=== PATIENT | female | born 1950 | race Caucasian/White ===

== ENCOUNTER 2016-09-08 23:28 | Emergency (ER) | payer MEDICARE, MEDICAID ==
[~2016-09-08] VITALS: Ht 167.6 cm; Wt 63.5 kg
[~2016-09-08 23:28] MED LIST: EXEM25TA4 PO; HYDR25TA4 PO; IPRIH IN; RAMI10CA38 PO; SERT-160 PO; TRAM50TA2 PO
[2016-09-09 05:34] VITALS: BP 130/66
[2016-09-09] MEDS ORDERED: TETANUS-DIPTH-ACEL PERTUSSIS 0.5ML SYRG IM ONE (06:45)
[2016-09-09] MEDS ORDERED: BACITRACIN TOP OINT 1 UD PKG TOP ONE (07:15)
== END 2016-09-09 07:21 | disposition home or self-care (01) ==
LOC: EDBD 23:28 → ER 23:28
DX: S01.81XA Laceration without foreign body of other part of head, initial encounter (principal); S51.801A Unspecified open wound of right forearm, initial encounter; F17.210 Nicotine dependence, cigarettes, uncomplicated; J44.9 Chronic obstructive pulmonary disease, unspecified; I10 Essential (primary) hypertension; Z90.89 Acquired absence of other organs; W01.0XXA Fall on same level from slipping, tripping and stumbling without subsequent striking against object, initial encounter; Y93.89 Activity, other specified; Y99.8 Other external cause status; Y92.89 Other specified places as the place of occurrence of the external cause
CPT/HCPCS: 12013; 70450; 90471; 90715

== ENCOUNTER 2016-09-28 20:02 | Inpatient (IN) | payer OTHER, MEDICAID ==
[~2016-09-28] VITALS: Ht 167.6 cm; Wt 70.9 kg
[2016-09-28] MEDS ORDERED: methylPREDNISolone SOD SUCC 125 MG/2 ML VL IV ONE (20:45)
[2016-09-28] MEDS ORDERED: ALBUTEROL SULF 2.5 MG/0.5ML(0.5%) NEB SOLN HHN ONE (20:45)
[2016-09-28] MEDS ORDERED: IPRATROPIUM BROM 0.5 MG/2.5ML INH SOL HHN ONE (20:45)
[2016-09-28 21:04] LABS: Basophils # (auto) 0 uL; Basophils % (auto) 0.4 % (0.0-2.0); CONDITION Y; Eosinophils # (auto) 0.1 uL; Eosinophils % (auto) 1.6 % (0.0-7.0); Hematocrit 40.8 % (36.0-46.0); Hemoglobin 13.1 g/dL (12.2-16.2); Lymphocytes # (auto) 1.1 uL; Lymphocytes % (auto) 18.1 % (10.0-50.0); Mean Corpuscular Hgb Conc. 32.2 g/dL (32.0-36.0); Mean Corpuscular Volume 96.3 fL (80.0-100.0); Mean Platelet Volume 6.3 fL (7.4-10.4); Monocytes # (auto) 0.5 uL; Monocytes % (auto) 8.1 % (0.0-12.0); Neutrophils # (auto) 4.2 uL; Neutrophils % (auto) 71.8 % (37.0-80.0); Platelet Count (auto) 234 10^3/uL (140-450); Red Cell Distribution Width 15.9 % (11.6-16.0); White Blood Cell 5.9 10^3/uL (4.4-10.8)
[2016-09-28 21:24] LABS: Albumin 3.4 g/dL (3.4-5.0); Anion Gap 6 (5-15); BUN/Creatinine Ratio 22.2; Blood Urea Nitrogen 16 mg/dL (7-18); Carbon Dioxide 38 mmol/L (21-32); Chloride 99 mmol/L (98-107); GFR African American 104 mL/min; GFR Non-African American 86 mL/min; Glucose 91 mg/dL (74-106); Potassium 4.6 mmol/L (3.5-5.1); Sodium 143 mmol/L (136-145)
[2016-09-28 21:30] LABS: Alkaline Phosphatase 73 U/L (45-117); Aspartate Aminotransferase 14 U/L (15-37); Bilirubin, Total 0.3 mg/dL (0.2-1.0)
[2016-09-28 21:50] LABS: B-Type Natriuretic Peptide 51.6 pg/mL (0-100)
[2016-09-28] MEDS ORDERED: cloNIDine HCL 0.1 MG TAB PO PRN (22:15)
[2016-09-28] MEDS ORDERED: ONDANSETRON HCL 4 MG/2 ML VIAL IV PRN (22:15)
[2016-09-28] MEDS ORDERED: FUROSEMIDE 20 MG/2 ML VIAL IV ONE (22:15)
[2016-09-28] MEDS ORDERED: ACETAMINOPHEN 325 MG TAB PO PRN (22:15)
[2016-09-28] MEDS: HYDROcodone-ACET 5/325MG TAB PO PRN (22:35)
[2016-09-28 23:15] VITALS: BP 162/86
[2016-09-28 23:30] VITALS: BP 153/72
[2016-09-29 05:00] VITALS: BP 152/86
[2016-09-29 06:54] LABS: Basophils # (auto) 0 uL; Basophils % (auto) 0.1 % (0.0-2.0); Eosinophils # (auto) 0 uL; Lymphocytes # (auto) 0.3 uL; Lymphocytes % (auto) 5.5 % (10.0-50.0); Mean Corpuscular Hemoglobin 30.9 pg (28.0-32.0); Mean Corpuscular Hgb Conc. 32.4 g/dL (32.0-36.0); Mean Corpuscular Volume 95.2 fL (80.0-100.0); Mean Platelet Volume 6.8 fL (7.4-10.4); Monocytes # (auto) 0 uL; Monocytes % (auto) 0.6 % (0.0-12.0); Neutrophils # (auto) 5.4 uL; Neutrophils % (auto) 93.8 % (37.0-80.0); Platelet Count (auto) 199 10^3/uL (140-450); Red Cell Distribution Width 14.2 % (11.6-16.0); White Blood Cell 5.7 10^3/uL (4.4-10.8)
[2016-09-29] MEDS: ALBUTEROL SULF 2.5 MG/0.5ML(0.5%) NEB SOLN NEB PRN ×3 (07:16→22:38)
[2016-09-29] MEDS: IPRATROPIUM BROM 0.5 MG/2.5ML INH SOL NEB PRN ×3 (07:17→22:39)
[2016-09-29 07:23] LABS: Albumin 3.4 g/dL (3.4-5.0); BUN/Creatinine Ratio 19.4; Bilirubin, Total 0.4 mg/dL (0.2-1.0); Calcium 9.5 mg/dL (8.5-10.1); Potassium 4.5 mmol/L (3.5-5.1); Total Protein 7.5 g/dL (6.4-8.2)
[2016-09-29 09:17] VITALS: BP 137/81
[2016-09-29] MEDS: SERTRALINE HCL 50 MG TAB PO SCH (10:00)
[2016-09-29] MEDS: RAMIPRIL 10 MG CAP PO SCH (10:53)
[2016-09-29] MEDS: HCTZ 25 MG TAB PO SCH (10:54)
[2016-09-29] MEDS: ENOXAPARIN SOD 40 MG/0.4 ML SYRINGE SC SCH (10:54)
[2016-09-29] MEDS: FAMOTIDINE 20 MG TAB PO SCH ×2 (10:55→21:58)
[2016-09-29 13:07] VITALS: BP 140/85
[2016-09-29] MEDS ORDERED: FLUT500M2 INH (13:37)
[2016-09-29] MEDS ORDERED: LEVOFLOXACIN 500MG 100 ML IV ONE (14:30)
[2016-09-29] MEDS ORDERED: guaiFENesin-DEXTROMETHORPHAN 5ML SYR PO PRN (14:30)
[2016-09-29 17:07] VITALS: BP 140/67
[2016-09-29 21:29] VITALS: BP 120/81
[2016-09-29] MEDS: methylPREDNISolone SOD SUCC 40 MG/ML VL IV SCH (21:58)
[2016-09-30 05:38] VITALS: BP 125/79
[2016-09-30 06:32] LABS: Basophils # (auto) 0 uL; Basophils % (auto) 0.3 % (0.0-2.0); CONDITION Y; Eosinophils # (auto) 0 uL; Hematocrit 41.5 % (36.0-46.0); Hemoglobin 13.6 g/dL (12.2-16.2); Lymphocytes # (auto) 0.4 uL; Lymphocytes % (auto) 8.7 % (10.0-50.0); Mean Corpuscular Hemoglobin 31.2 pg (28.0-32.0); Mean Corpuscular Hgb Conc. 32.7 g/dL (32.0-36.0); Mean Corpuscular Volume 95.4 fL (80.0-100.0); Mean Platelet Volume 7.2 fL (7.4-10.4); Monocytes # (auto) 0.3 uL; Monocytes % (auto) 5.1 % (0.0-12.0); Neutrophils # (auto) 4.4 uL; Neutrophils % (auto) 85.9 % (37.0-80.0); Platelet Count (auto) 211 10^3/uL (140-450); Red Cell Distribution Width 15.4 % (11.6-16.0); White Blood Cell 5.2 10^3/uL (4.4-10.8)
[2016-09-30 06:40] LABS: Calcium 9.1 mg/dL (8.5-10.1); Potassium 5.3 mmol/L (3.5-5.1)
[2016-09-30 06:44] LABS: BUN/Creatinine Ratio 18.1
[2016-09-30 09:00] VITALS: BP 145/68
[2016-09-30] MEDS: ENOXAPARIN SOD 40 MG/0.4 ML SYRINGE SC SCH (10:00)
[2016-09-30] MEDS: RAMIPRIL 10 MG CAP PO SCH (10:42)
[2016-09-30] MEDS: methylPREDNISolone SOD SUCC 40 MG/ML VL IV SCH ×2 (10:42→21:28)
[2016-09-30] MEDS: HCTZ 25 MG TAB PO SCH (10:43)
[2016-09-30] MEDS: FAMOTIDINE 20 MG TAB PO SCH ×2 (10:43→21:28)
[2016-09-30] MEDS: LEVOFLOXACIN 500MG 100 ML IV SCH (10:43)
[2016-09-30] MEDS: SERTRALINE HCL 50 MG TAB PO SCH (10:44)
[2016-09-30] MEDS: HYDROcodone-ACET 5/325MG TAB PO PRN (10:58)
[2016-09-30] MEDS: IPRATROPIUM BROM 0.5 MG/2.5ML INH SOL NEB PRN (12:40)
[2016-09-30] MEDS: ALBUTEROL SULF 2.5 MG/0.5ML(0.5%) NEB SOLN NEB PRN (12:40)
[2016-09-30 13:01] VITALS: BP 109/64
[2016-09-30] MEDS ORDERED: SODIUM CHLORIDE 0.9% 1,000 ML IV SCH (15:15)
[2016-09-30] MEDS: SODIUM CHLORIDE 0.9% 1,000 ML IV SCH (16:11)
[2016-09-30 17:00] VITALS: BP 149/68
[2016-09-30] MEDS ORDERED: ALPR0.5T PO (20:29)
[2016-09-30 21:18] VITALS: BP 113/65
[2016-09-30] MEDS: TEMAZEPAM 15 MG CAP PO PRN (21:28)
[2016-10-01 05:31] VITALS: BP 105/51
[2016-10-01 06:42] LABS: BUN/Creatinine Ratio 26.1; Calcium 9.2 mg/dL (8.5-10.1); Potassium 5.5 mmol/L (3.5-5.1)
[2016-10-01] MEDS ORDERED: SODIUM CHLORIDE 0.9% 1,000 ML IV ONE (07:15)
[2016-10-01] MEDS ORDERED: SODIUM BICARBONATE 8.4 % INJ 50ML VIAL IV ONE (07:15)
[2016-10-01] MEDS: IPRATROPIUM BROM 0.5 MG/2.5ML INH SOL NEB PRN (07:54)
[2016-10-01] MEDS: ALBUTEROL SULF 2.5 MG/0.5ML(0.5%) NEB SOLN NEB PRN (07:54)
[2016-10-01] MEDS: SODIUM CHLORIDE 0.9% 1,000 ML IV SCH (07:55)
[2016-10-01] MEDS: SERTRALINE HCL 50 MG TAB PO SCH (08:59)
[2016-10-01] MEDS: FAMOTIDINE 20 MG TAB PO SCH ×2 (08:59→21:50)
[2016-10-01] MEDS: ENOXAPARIN SOD 40 MG/0.4 ML SYRINGE SC SCH (08:59)
[2016-10-01] MEDS: methylPREDNISolone SOD SUCC 40 MG/ML VL IV SCH ×2 (08:59→21:50)
[2016-10-01 09:00] VITALS: BP 90/48
[2016-10-01] MEDS: LEVOFLOXACIN 500MG 100 ML IV SCH (09:04)
[2016-10-01] MEDS ORDERED: SODIUM POLYSTYRENE SULF 15GM/60ML SUSP PO ONE (09:15)
[2016-10-01] MEDS: ALPRAZolam 0.5 MG TAB PO PRN (10:16)
[2016-10-01 10:37] LABS: Urine Bilirubin Negative (Negative); Urine Color Yellow (Yellow); Urine Glucose Normal (Normal); Urine Ketone Negative (Negative); Urine Nitrite Negative (Negative); Urine RBC 19 /hpf (0 - 4); Urine Squamous Epithelial Cell FEW /hpf (<5); Urine Urobilinogen Normal (Negative); Urine pH 6.5 (5.0-8.0)
[2016-10-01 10:38] LABS: Urine Blood 2+ /uL (Negative)
[2016-10-01 13:00] VITALS: BP 132/66
[2016-10-01 17:00] VITALS: BP 135/73
[2016-10-01] MEDS: MULTIPLE VITAMINS W/ MINERALS TAB PO SCH (17:26)
[2016-10-01] MEDS ORDERED: SERTRALINE HCL 50 MG TAB PO ONE (17:30)
[2016-10-01] MEDS: TEMAZEPAM 15 MG CAP PO PRN (21:49)
[2016-10-01] MEDS: ASCORBIC ACID 500 MG TAB PO SCH (21:49)
[2016-10-01 22:00] VITALS: BP 149/75
[2016-10-02] VITALS (8 sets, daily range): BP systolic 102–152; BP diastolic 50–74
[2016-10-02] MEDS: SODIUM CHLORIDE 0.9% 1,000 ML IV SCH (05:34)
[2016-10-02 05:53] LABS: Basophils # (auto) 0 uL; Basophils % (auto) 0.3 % (0.0-2.0); CONDITION Y; Eosinophils # (auto) 0 uL; Eosinophils % (auto) 0.1 % (0.0-7.0); Hematocrit 42.4 % (36.0-46.0); Hemoglobin 13.9 g/dL (12.2-16.2); Lymphocytes # (auto) 0.8 uL; Lymphocytes % (auto) 17.9 % (10.0-50.0); Mean Corpuscular Hemoglobin 31.3 pg (28.0-32.0); Mean Corpuscular Hgb Conc. 32.8 g/dL (32.0-36.0); Mean Corpuscular Volume 95.4 fL (80.0-100.0); Mean Platelet Volume 6.8 fL (7.4-10.4); Monocytes # (auto) 0.3 uL; Monocytes % (auto) 7.7 % (0.0-12.0); Neutrophils # (auto) 3.4 uL; Platelet Count (auto) 233 10^3/uL (140-450); Red Cell Distribution Width 15.6 % (11.6-16.0); White Blood Cell 4.5 10^3/uL (4.4-10.8)
[2016-10-02 06:14] LABS: BUN/Creatinine Ratio 30.1; Calcium 8.8 mg/dL (8.5-10.1); Potassium 3.9 mmol/L (3.5-5.1)
[2016-10-02] MEDS: ALBUTEROL SULF 2.5 MG/0.5ML(0.5%) NEB SOLN NEB PRN (06:55)
[2016-10-02] MEDS: IPRATROPIUM BROM 0.5 MG/2.5ML INH SOL NEB PRN (06:55)
[2016-10-02] MEDS: ENOXAPARIN SOD 40 MG/0.4 ML SYRINGE SC SCH (10:42)
[2016-10-02] MEDS: LEVOFLOXACIN 500MG 100 ML IV SCH (10:43)
[2016-10-02] MEDS: MULTIPLE VITAMINS W/ MINERALS TAB PO SCH (10:44)
[2016-10-02] MEDS: methylPREDNISolone SOD SUCC 40 MG/ML VL IV SCH (10:44)
[2016-10-02] MEDS: FAMOTIDINE 20 MG TAB PO SCH (10:45)
[2016-10-02] MEDS: ASCORBIC ACID 500 MG TAB PO SCH (10:45)
[2016-10-02] MEDS: SERTRALINE HCL 50 MG TAB PO SCH (10:46)
[2016-10-02] MEDS ORDERED: CLON05T PO (12:04)
[2016-10-02] MEDS ORDERED: SERT-135 PO (12:04)
[2016-10-02] MEDS ORDERED: LEVO500T21 PO (12:04)
[2016-10-02] MEDS: ALPRAZolam 0.5 MG TAB PO PRN (13:36)
== END 2016-10-02 16:30 | disposition home health service (06) | DRG 190 ==
LOC: ER 20:04 → OVERFLOW 20:05 → WEST WING 23:00
PROVIDERS: ADMIT Internal Medicine; ATTEND Internal Medicine
DX: J44.1 Chronic obstructive pulmonary disease with (acute) exacerbation (principal); J96.21 Acute and chronic respiratory failure with hypoxia; N17.0 Acute kidney failure with tubular necrosis; I12.9 Hypertensive chronic kidney disease with stage 1 through stage 4 chronic kidney disease, or unspecified chronic kidney disease; E87.5 Hyperkalemia; F41.9 Anxiety disorder, unspecified; F32.9 Major depressive disorder, single episode, unspecified; F17.210 Nicotine dependence, cigarettes, uncomplicated; N18.9 Chronic kidney disease, unspecified; Z82.3 Family history of stroke; Z85.3 Personal history of malignant neoplasm of breast; Z90.12 Acquired absence of left breast and nipple; Z90.89 Acquired absence of other organs
CPT/HCPCS: 36415; 71010; 80048; 80053; 81001; 83735; 83880; 84484; 85025; 87086; 93005; 93306; 94640; 94644; 94761; 96374; 96375; J1642; J1956

== ENCOUNTER → 2017-01-18 | Outpatient (CLI) | payer MEDICARE, MEDICAID ==
[~2017-01-18] MED LIST changes: +CLON05T PO; +FLUT500M2 INH; +LEVO500T21 PO; -RAMI10CA38 PO; +SERT-135 PO; -SERT-160 PO
[2017-01-18 14:59] LABS: Basophils # (auto) 0 uL; Basophils % (auto) 0.8 % (0.0-2.0); Eosinophils # (auto) 0.1 uL; Eosinophils % (auto) 1.7 % (0.0-7.0); Hematocrit 41.1 % (36.0-46.0); Hemoglobin 13.4 g/dL (12.2-16.2); Lymphocytes # (auto) 1.3 uL; Lymphocytes % (auto) 20.6 % (10.0-50.0); Mean Corpuscular Hemoglobin 31.4 pg (28.0-32.0); Mean Corpuscular Hgb Conc. 32.5 g/dL (32.0-36.0); Mean Corpuscular Volume 96.6 fL (80.0-100.0); Mean Platelet Volume 6.5 fL (6.9-10.8); Monocytes # (auto) 0.5 uL; Monocytes % (auto) 7.7 % (0.0-12.0); Neutrophils # (auto) 4.2 uL; Neutrophils % (auto) 69.2 % (37.0-80.0); Nucleated Red Blood Cells % 0.1 %; Platelet Count (auto) 186 10^3/uL (140-450); Red Cell Distribution Width 15.3 % (11.8-14.3); White Blood Cell 6.1 10^3/uL (4.4-10.8)
[2017-01-18 16:06] LABS: Albumin 3.5 g/dL (3.4-5.0); BUN/Creatinine Ratio 20.9; Bilirubin, Total 0.2 mg/dL (0.2-1.0); Calcium 9.1 mg/dL (8.5-10.1); Potassium 4.5 mmol/L (3.5-5.1)
== END | disposition home or self-care (01) ==
LOC: LAB 14:22
PROVIDERS: ATTEND Internal Medicine
DX: D64.81 Anemia due to antineoplastic chemotherapy (principal); Z85.3 Personal history of malignant neoplasm of breast; Z90.12 Acquired absence of left breast and nipple; J44.9 Chronic obstructive pulmonary disease, unspecified; I10 Essential (primary) hypertension; R53.83 Other fatigue
CPT/HCPCS: 36415; 80053; 83615; 85025

== ENCOUNTER → 2017-01-26 | Outpatient (CLI) | payer MEDICARE, MEDICAID ==
[2017-01-26 17:03] LABS: Basophils # (auto) 0 uL; Basophils % (auto) 0.8 % (0.0-2.0); Eosinophils # (auto) 0.1 uL; Eosinophils % (auto) 1.5 % (0.0-7.0); Hematocrit 42.6 % (36.0-46.0); Hemoglobin 13.6 g/dL (12.2-16.2); Lymphocytes # (auto) 1.4 uL; Lymphocytes % (auto) 27.9 % (10.0-50.0); Mean Corpuscular Hemoglobin 31.1 pg (28.0-32.0); Mean Corpuscular Hgb Conc. 31.9 g/dL (32.0-36.0); Mean Corpuscular Volume 97.4 fL (80.0-100.0); Mean Platelet Volume 6.6 fL (6.9-10.8); Monocytes # (auto) 0.4 uL; Monocytes % (auto) 8.6 % (0.0-12.0); Neutrophils # (auto) 3.1 uL; Neutrophils % (auto) 61.2 % (37.0-80.0); Platelet Count (auto) 193 10^3/uL (140-450); Red Cell Distribution Width 15.4 % (11.8-14.3)
[2017-01-26 17:26] LABS: Albumin 3.8 g/dL (3.4-5.0); BUN/Creatinine Ratio 20.8; Bilirubin, Total 0.2 mg/dL (0.2-1.0); Calcium 9.5 mg/dL (8.5-10.1); Potassium 4.6 mmol/L (3.5-5.1); Total Protein 7.6 g/dL (6.4-8.2)
== END | disposition home or self-care (01) ==
LOC: LAB 16:30
PROVIDERS: ATTEND Internal Medicine
DX: J44.9 Chronic obstructive pulmonary disease, unspecified (principal); F41.0 Panic disorder [episodic paroxysmal anxiety]
CPT/HCPCS: 36415; 80053; 84439; 84443; 85025

== ENCOUNTER 2017-02-03 11:56 | Inpatient (IN) | payer MEDICARE, MEDICAID ==
[~2017-02-03] VITALS: Ht 165.1 cm; Wt 69.5 kg
[2017-02-03] MEDS ORDERED: ALBUTEROL SULF 2.5 MG/0.5ML(0.5%) NEB SOLN HHN ONE (12:30)
[2017-02-03] MEDS ORDERED: IPRATROPIUM BROM 0.5 MG/2.5ML INH SOL HHN ONE (12:30)
[2017-02-03] MEDS ORDERED: methylPREDNISolone SOD SUCC 125 MG/2 ML VL IV ONE (12:30)
[2017-02-03] MEDS ORDERED: cefTRIAXone 1GM/50ML D5W 50 ML IV ONE (12:45)
[2017-02-03 12:46] LABS: Basophils # (auto) 0 uL; Basophils % (auto) 0.5 % (0.0-2.0); Eosinophils # (auto) 0 uL; Eosinophils % (auto) 0.3 % (0.0-7.0); Hematocrit 41.8 % (36.0-46.0); Hemoglobin 13.2 g/dL (12.2-16.2); Lymphocytes # (auto) 0.7 uL; Lymphocytes % (auto) 12.8 % (10.0-50.0); Mean Corpuscular Hemoglobin 31.1 pg (28.0-32.0); Mean Corpuscular Hgb Conc. 31.5 g/dL (32.0-36.0); Mean Corpuscular Volume 98.7 fL (80.0-100.0); Mean Platelet Volume 6.7 fL (6.9-10.8); Monocytes # (auto) 0.5 uL; Monocytes % (auto) 9.8 % (0.0-12.0); Neutrophils # (auto) 4.2 uL; Neutrophils % (auto) 76.6 % (37.0-80.0); Nucleated Red Blood Cells % 0.1 %; Platelet Count (auto) 122 10^3/uL (140-450); Red Cell Distribution Width 15.5 % (11.8-14.3); White Blood Cell 5.5 10^3/uL (4.4-10.8)
[2017-02-03 13:08] LABS: Allen Test Yes; Base Excess 9.1 mmol/L (-2.0-2.0); Blood 02Sat 94.5 % (96-100); Blood COHb 3.4 % (0.5-1.5); Blood MetHb 0.1 % (0.0-1.5); HCO3 42.4 mmol/L (22-26.0); HHb 5.3 % (0.0-5.0); MODE MASK - SIMPLE; O2Hb 91.2 % (94.0-97.0); PCO2 117.9 mmHg (35.0-45.0); PCO2(T) 117.9 mmHg (35.0-45.0); Sample Type Arterial; pH 7.174 (7.350-7.450)
[2017-02-03 13:18] LABS: Albumin 3.3 g/dL (3.4-5.0); BUN/Creatinine Ratio 31.1; Bilirubin, Total 0.2 mg/dL (0.2-1.0); Calcium 8.6 mg/dL (8.5-10.1); Magnesium 2.4 mg/dL (1.6-2.6); Potassium 4.9 mmol/L (3.5-5.1); Total Protein 6.8 g/dL (6.4-8.2)
[2017-02-03 13:25] LABS: B-Type Natriuretic Peptide 121.67 pg/mL (0-100)
[2017-02-03 13:29] LABS: Temperature: 21.7 C (20.0-25.0)
[2017-02-03] MEDS ORDERED: ALBUTEROL SULF 2.5 MG/0.5ML(0.5%) NEB SOLN NEB PRN (14:00)
[2017-02-03] MEDS ORDERED: LACTULOSE 20Gm/30ML SOLN PO PRN (14:00)
[2017-02-03] MEDS ORDERED: MORPHINE SULF INJ 2 MG/ML SYRINGE 1ML IV PRN ×2 (14:00)
[2017-02-03] MEDS ORDERED: HYDROcodone-ACET 5/325MG TAB PO PRN (14:00)
[2017-02-03] MEDS ORDERED: PROMETHAZINE HCL 25 MG/ML 1ML IV PRN (14:00)
[2017-02-03] MEDS ORDERED: NITROGLYCERIN 0.4 MG SL TAB SL PRN (14:00)
[2017-02-03] MEDS: SODIUM CHLOR 0.9% PF (SALINE LOCK) 10ML VIAL IV SCH ×2 (14:38→22:11)
[2017-02-03 14:45] LABS: Allen Test Yes; Base Excess 10.6 mmol/L (-2.0-2.0); Blood 02Sat 86.4 % (96-100); Blood COHb 3.1 % (0.5-1.5); Blood MetHb 0.1 % (0.0-1.5); HCO3 42.6 mmol/L (22-26.0); HHb 13.2 % (0.0-5.0); MODE MASK - BIPAP; O2Hb 83.6 % (94.0-97.0); PCO2 102.1 mmHg (35.0-45.0); PCO2(T) 102.1 mmHg (35.0-45.0); PO2 50.2 mmHg (80.0-100.0); PO2(T) 50.2 mmHg (80.0-100.0); Sample Type Arterial; pH 7.238 (7.350-7.450)
[2017-02-03 17:05] LABS: Allen Test Yes; Base Excess 11.3 mmol/L (-2.0-2.0); Blood COHb 2.7 % (0.5-1.5); Blood MetHb 0.1 % (0.0-1.5); HCO3 43.2 mmol/L (22-26.0); HHb 13.6 % (0.0-5.0); MODE MASK - BIPAP; O2Hb 83.6 % (94.0-97.0); PCO2 100.3 mmHg (35.0-45.0); PCO2(T) 100.3 mmHg (35.0-45.0); PO2 49.1 mmHg (80.0-100.0); PO2(T) 49.1 mmHg (80.0-100.0); Room 1016-ERT; Sample Type Arterial; pH 7.252 (7.350-7.450)
[2017-02-03] MEDS: methylPREDNISolone SOD SUCC 40 MG/ML VL IV SCH (18:08)
[2017-02-03] MEDS: ALBUTEROL SULF 2.5 MG/0.5ML(0.5%) NEB SOLN NEB SCH (18:32)
[2017-02-03] MEDS: BUDESONIDE (INHALATION) 0.5 MG/2 ML NEB NEB SCH (18:32)
[2017-02-03] MEDS: IPRATROPIUM BROM 0.5 MG/2.5ML INH SOL NEB SCH (18:32)
[2017-02-03 19:24] LABS: Allen Test Yes; Base Excess 10.3 mmol/L (-2.0-2.0); Blood 02Sat 90.1 % (96-100); Blood COHb 2.2 % (0.5-1.5); Blood MetHb 0.1 % (0.0-1.5); HCO3 41.1 mmol/L (22-26.0); HHb 9.7 % (0.0-5.0); MODE MASK - BIPAP; PCO2 90.2 mmHg (35.0-45.0); PCO2(T) 90.2 mmHg (35.0-45.0); PIP 18; PO2 57.2 mmHg (80.0-100.0); PO2(T) 57.2 mmHg (80.0-100.0); Room 1016-ERT; Sample Type Arterial; Spont Vt 661; pH 7.277 (7.350-7.450)
[2017-02-03 21:19] VITALS: BP 141/78
[2017-02-03] MEDS ORDERED: PATIENTS OWN MEDICATION (Fluticasone-Salmeterol (Advair Diskus 500/50) 1 PUFF) INH SCH (22:00)
[2017-02-03 23:21] VITALS: BP 135/73
[2017-02-03 23:30] VITALS: BP 137/78
[2017-02-03 23:45] VITALS: BP 137/72
[2017-02-04] VITALS (24 sets, daily range): BP systolic 109–159; BP diastolic 50–86
[2017-02-04] MEDS: methylPREDNISolone SOD SUCC 40 MG/ML VL IV SCH ×4 (00:22→17:47)
[2017-02-04] MEDS: ALBUTEROL SULF 2.5 MG/0.5ML(0.5%) NEB SOLN NEB SCH ×5 (02:34→18:05)
[2017-02-04] MEDS: IPRATROPIUM BROM 0.5 MG/2.5ML INH SOL NEB SCH ×5 (02:34→18:05)
[2017-02-04 04:28] LABS: B-Type Natriuretic Peptide 88.19 pg/mL (0-100)
[2017-02-04 04:43] LABS: Temperature: 21.7 C (20.0-25.0)
[2017-02-04] MEDS: SODIUM CHLOR 0.9% PF (SALINE LOCK) 10ML VIAL IV SCH ×3 (05:32→22:00)
[2017-02-04] MEDS: BUDESONIDE (INHALATION) 0.5 MG/2 ML NEB NEB SCH ×3 (05:53→18:05)
[2017-02-04 08:01] LABS: Allen Test Yes; Base Excess 9.2 mmol/L (-2.0-2.0); Blood 02Sat 90.9 % (96-100); Blood COHb 1.4 % (0.5-1.5); Blood MetHb 0.2 % (0.0-1.5); HCO3 38.4 mmol/L (22-26.0); MODE MASK - BIPAP; O2Hb 89.4 % (94.0-97.0); PCO2 75.5 mmHg (35.0-45.0); PCO2(T) 75.5 mmHg (35.0-45.0); PO2 61.1 mmHg (80.0-100.0); PO2(T) 61.1 mmHg (80.0-100.0); Sample Type Arterial; pH 7.324 (7.350-7.450)
[2017-02-04] MEDS: AZITHROMYCIN 500MG/ 250ML 250 ML IV SCH (09:36)
[2017-02-04] MEDS: PANTOPRAZOLE 40 MG TAB PO SCH (09:37)
[2017-02-04] MEDS: ENALAPRIL MALEATE 2.5 MG TAB PO SCH (09:37)
[2017-02-04] MEDS: ENOXAPARIN SOD 40 MG/0.4 ML SYRINGE SC SCH (09:38)
[2017-02-04] MEDS: SERTRALINE HCL 50 MG TAB PO SCH (09:38)
[2017-02-04] MEDS ORDERED: HCTZ 25 MG TAB PO SCH (10:00)
[2017-02-04] MEDS: clonazePAM 0.5 MG TAB PO PRN (21:29)
[2017-02-05] VITALS: BP 126/66
[2017-02-05] MEDS: methylPREDNISolone SOD SUCC 40 MG/ML VL IV SCH ×5 (00:01→23:46)
[2017-02-05] MEDS: ALBUTEROL SULF 2.5 MG/0.5ML(0.5%) NEB SOLN NEB SCH ×4 (00:11→18:28)
[2017-02-05] MEDS: IPRATROPIUM BROM 0.5 MG/2.5ML INH SOL NEB SCH ×4 (00:11→18:28)
[2017-02-05 05:09] LABS: Basophils # (auto) 0 uL; Basophils % (auto) 0.1 % (0.0-2.0); Eosinophils # (auto) 0 uL; Hematocrit 40.5 % (36.0-46.0); Hemoglobin 13.4 g/dL (12.2-16.2); Lymphocytes # (auto) 0.4 uL; Lymphocytes % (auto) 7.9 % (10.0-50.0); Mean Corpuscular Hemoglobin 31.6 pg (28.0-32.0); Mean Corpuscular Hgb Conc. 33.1 g/dL (32.0-36.0); Mean Corpuscular Volume 95.4 fL (80.0-100.0); Monocytes # (auto) 0.1 uL; Monocytes % (auto) 2.7 % (0.0-12.0); Neutrophils % (auto) 89.3 % (37.0-80.0); Platelet Count (auto) 140 10^3/uL (140-450); Red Cell Distribution Width 14.9 % (11.8-14.3); White Blood Cell 4.5 10^3/uL (4.4-10.8)
[2017-02-05 05:29] LABS: BUN/Creatinine Ratio 44.7
[2017-02-05] MEDS: SODIUM CHLOR 0.9% PF (SALINE LOCK) 10ML VIAL IV SCH ×3 (05:38→22:15)
[2017-02-05] MEDS: BUDESONIDE (INHALATION) 0.5 MG/2 ML NEB NEB SCH ×2 (06:30→18:28)
[2017-02-05 07:28] LABS: Allen Test No; Base Excess 11.5 mmol/L (-2.0-2.0); Blood 02Sat 82.6 % (96-100); Blood COHb 0.3 % (0.5-1.5); Blood MetHb 0.1 % (0.0-1.5); HCO3 42.1 mmol/L (22-26.0); HHb 17.3 % (0.0-5.0); MODE OXYMIZER; O2Hb 82.3 % (94.0-97.0); PCO2 85.9 mmHg (35.0-45.0); PCO2(T) 85.9 mmHg (35.0-45.0); PO2 51.2 mmHg (80.0-100.0); PO2(T) 51.2 mmHg (80.0-100.0); Room 0262D; Sample Type Arterial; pH 7.308 (7.350-7.450)
[2017-02-05] MEDS ORDERED: FUROSEMIDE 40 MG/4 ML VIAL IV ONE (08:30)
[2017-02-05 09:24] LABS: Allen Test No; Base Excess 12.4 mmol/L (-2.0-2.0); Blood 02Sat 84.4 % (96-100); Blood COHb 0.4 % (0.5-1.5); Blood MetHb 0.1 % (0.0-1.5); HCO3 41.3 mmol/L (22-26.0); HHb 15.5 % (0.0-5.0); MODE OXYMIZER; PCO2 72.4 mmHg (35.0-45.0); PCO2(T) 72.4 mmHg (35.0-45.0); PO2 51.1 mmHg (80.0-100.0); PO2(T) 51.1 mmHg (80.0-100.0); Room 0262D; Sample Type Arterial; pH 7.374 (7.350-7.450)
[2017-02-05] MEDS: PANTOPRAZOLE 40 MG TAB PO SCH (10:29)
[2017-02-05] MEDS: ENOXAPARIN SOD 40 MG/0.4 ML SYRINGE SC SCH (10:29)
[2017-02-05] MEDS: SERTRALINE HCL 50 MG TAB PO SCH (10:29)
[2017-02-05] MEDS: AZITHROMYCIN 500MG/ 250ML 250 ML IV SCH (10:29)
[2017-02-05] MEDS: ENALAPRIL MALEATE 2.5 MG TAB PO SCH (10:29)
[2017-02-05] MEDS: clonazePAM 0.5 MG TAB PO PRN (10:31)
[2017-02-05 12:00] VITALS: BP 125/74
[2017-02-05 16:00] VITALS: BP 121/72
[2017-02-05 20:00] VITALS: BP 114/61
[2017-02-05] MEDS: ACETAMINOPHEN 500 MG TAB PO PRN (22:21)
[2017-02-06] MEDS: ALBUTEROL SULF 2.5 MG/0.5ML(0.5%) NEB SOLN NEB SCH ×4 (00:24→18:56)
[2017-02-06] MEDS: IPRATROPIUM BROM 0.5 MG/2.5ML INH SOL NEB SCH ×4 (00:24→18:56)
[2017-02-06 04:30] VITALS: BP 138/76
[2017-02-06] MEDS: BUDESONIDE (INHALATION) 0.5 MG/2 ML NEB NEB SCH ×2 (05:38→18:56)
[2017-02-06 05:57] LABS: BUN/Creatinine Ratio 54.4; Calcium 8.8 mg/dL (8.5-10.1); Potassium 4.7 mmol/L (3.5-5.1)
[2017-02-06] MEDS: SODIUM CHLOR 0.9% PF (SALINE LOCK) 10ML VIAL IV SCH ×3 (06:01→22:00)
[2017-02-06] MEDS: methylPREDNISolone SOD SUCC 40 MG/ML VL IV SCH ×4 (06:02→23:35)
[2017-02-06] MEDS ORDERED: CLON05T PO (06:31)
[2017-02-06 07:45] VITALS: BP 154/92
[2017-02-06 09:18] LABS: Allen Test Yes; Base Excess 11.3 mmol/L (-2.0-2.0); Blood 02Sat 91.7 % (96-100); Blood COHb 0.2 % (0.5-1.5); Blood MetHb 0.3 % (0.0-1.5); HCO3 40.3 mmol/L (22-26.0); HHb 8.3 % (0.0-5.0); MODE OXYMIZER; O2Hb 91.2 % (94.0-97.0); PCO2 71.5 mmHg (35.0-45.0); PCO2(T) 71.5 mmHg (35.0-45.0); PO2 67.3 mmHg (80.0-100.0); PO2(T) 67.3 mmHg (80.0-100.0); Room 0262D; Sample Type Arterial; pH 7.369 (7.350-7.450)
[2017-02-06] MEDS: ENALAPRIL MALEATE 2.5 MG TAB PO SCH (09:43)
[2017-02-06] MEDS: SERTRALINE HCL 50 MG TAB PO SCH (09:43)
[2017-02-06] MEDS: AZITHROMYCIN 250 MG TAB PO SCH (09:43)
[2017-02-06] MEDS: PANTOPRAZOLE 40 MG TAB PO SCH (09:44)
[2017-02-06] MEDS: ENOXAPARIN SOD 40 MG/0.4 ML SYRINGE SC SCH (09:44)
[2017-02-06] MEDS: clonazePAM 0.5 MG TAB PO PRN ×2 (09:54→19:40)
[2017-02-06 12:00] VITALS: BP 122/55
[2017-02-06 16:00] VITALS: BP 107/53
[2017-02-06] MEDS ORDERED: IOHEXOL 350 MG/ML 100ML IJ ONE (16:41)
[2017-02-06 20:00] VITALS: BP 116/53
[2017-02-06] MEDS: ENOXAPARIN SOD 60 MG/0.6 ML SYRINGE SC SCH (22:00)
[2017-02-06] MEDS: ACETAMINOPHEN 500 MG TAB PO PRN (22:06)
[2017-02-06 23:56] VITALS: BP 126/63
[2017-02-07] MEDS: ALBUTEROL SULF 2.5 MG/0.5ML(0.5%) NEB SOLN NEB SCH ×4 (00:53→18:52)
[2017-02-07] MEDS: IPRATROPIUM BROM 0.5 MG/2.5ML INH SOL NEB SCH ×4 (00:53→18:52)
[2017-02-07 03:50] VITALS: BP 130/76
[2017-02-07 04:00] VITALS: BP 154/92
[2017-02-07] MEDS: SODIUM CHLOR 0.9% PF (SALINE LOCK) 10ML VIAL IV SCH ×3 (05:46→21:49)
[2017-02-07] MEDS: methylPREDNISolone SOD SUCC 40 MG/ML VL IV SCH ×3 (05:46→16:59)
[2017-02-07] MEDS: BUDESONIDE (INHALATION) 0.5 MG/2 ML NEB NEB SCH ×2 (07:09→18:42)
[2017-02-07] MEDS: SERTRALINE HCL 50 MG TAB PO SCH (09:55)
[2017-02-07] MEDS: PANTOPRAZOLE 40 MG TAB PO SCH (09:56)
[2017-02-07] MEDS: AZITHROMYCIN 250 MG TAB PO SCH (09:56)
[2017-02-07] MEDS: clonazePAM 0.5 MG TAB PO PRN ×2 (09:56→20:13)
[2017-02-07] MEDS: ENOXAPARIN SOD 60 MG/0.6 ML SYRINGE SC SCH ×2 (09:57→21:48)
[2017-02-07] MEDS: ENALAPRIL MALEATE 2.5 MG TAB PO SCH (09:57)
[2017-02-07 11:54] VITALS: BP 125/70
[2017-02-07 16:00] VITALS: BP 118/67
[2017-02-07 19:49] VITALS: BP 109/51
[2017-02-07] MEDS: ACETAMINOPHEN 500 MG TAB PO PRN (20:41)
[2017-02-08] VITALS: BP 133/63
[2017-02-08] MEDS: methylPREDNISolone SOD SUCC 40 MG/ML VL IV SCH ×3 (00:12→11:23)
[2017-02-08] MEDS: IPRATROPIUM BROM 0.5 MG/2.5ML INH SOL NEB SCH ×3 (00:21→13:36)
[2017-02-08] MEDS: ALBUTEROL SULF 2.5 MG/0.5ML(0.5%) NEB SOLN NEB SCH ×3 (00:21→13:36)
[2017-02-08 04:00] VITALS: BP 126/64
[2017-02-08] MEDS: SODIUM CHLOR 0.9% PF (SALINE LOCK) 10ML VIAL IV SCH ×2 (05:33→14:00)
[2017-02-08 05:38] LABS: Basophils # (auto) 0 uL; Basophils % (auto) 0.2 % (0.0-2.0); Eosinophils # (auto) 0 uL; Hematocrit 43.8 % (36.0-46.0); Hemoglobin 14.6 g/dL (12.2-16.2); Lymphocytes # (auto) 0.4 uL; Lymphocytes % (auto) 8.8 % (10.0-50.0); Mean Corpuscular Hemoglobin 31.5 pg (28.0-32.0); Mean Corpuscular Hgb Conc. 33.3 g/dL (32.0-36.0); Mean Corpuscular Volume 94.7 fL (80.0-100.0); Mean Platelet Volume 7.2 fL (6.9-10.8); Monocytes # (auto) 0.2 uL; Monocytes % (auto) 4.9 % (0.0-12.0); Neutrophils # (auto) 4.1 uL; Neutrophils % (auto) 86.1 % (37.0-80.0); Nucleated Red Blood Cells % 0.1 %; Platelet Count (auto) 164 10^3/uL (140-450); Red Cell Distribution Width 14.7 % (11.8-14.3); White Blood Cell 4.8 10^3/uL (4.4-10.8)
[2017-02-08 05:50] LABS: INR 0.95 (0.9-1.15); Prothrombin Time 10.4 sec (9.37-12.3)
[2017-02-08 06:06] LABS: BUN/Creatinine Ratio 64.8; Calcium 8.7 mg/dL (8.5-10.1)
[2017-02-08] MEDS: BUDESONIDE (INHALATION) 0.5 MG/2 ML NEB NEB SCH (07:57)
[2017-02-08 08:00] VITALS: BP 137/76
[2017-02-08] MEDS: SERTRALINE HCL 50 MG TAB PO SCH (09:35)
[2017-02-08] MEDS: AZITHROMYCIN 250 MG TAB PO SCH (09:35)
[2017-02-08] MEDS: PANTOPRAZOLE 40 MG TAB PO SCH (09:35)
[2017-02-08] MEDS: ENALAPRIL MALEATE 2.5 MG TAB PO SCH (09:36)
[2017-02-08] MEDS: ENOXAPARIN SOD 60 MG/0.6 ML SYRINGE SC SCH (09:36)
[2017-02-08] MEDS: clonazePAM 0.5 MG TAB PO PRN (09:42)
[2017-02-08 11:47] VITALS: BP 139/99
[2017-02-08] MEDS ORDERED: APIXABAN 5 MG TAB PO ONE (12:15)
[2017-02-08 14:39] VITALS: BP 139/99
[2017-02-08] MEDS: ACETAMINOPHEN 500 MG TAB PO PRN (15:12)
== END 2017-02-08 16:00 | disposition home health service (06) | DRG 175 ==
LOC: ER 11:56 → EDBD 11:56 → TELE 11:57 → ICU WEST 22:58 → DOU IN ICU 02-04 16:25
PROVIDERS: ADMIT Internal Medicine; ATTEND Internal Medicine
PROC: 5A09357 Assistance with Respiratory Ventilation, Less than 24 Consecutive Hours, Continuous Positive Airway Pressure (ICD-10-PCS; principal; 2017-02-03)
DX: I26.99 Other pulmonary embolism without acute cor pulmonale (principal); J96.22 Acute and chronic respiratory failure with hypercapnia; E87.2 Acidosis; J44.1 Chronic obstructive pulmonary disease with (acute) exacerbation; I13.0 Hypertensive heart and chronic kidney disease with heart failure and stage 1 through stage 4 chronic kidney disease, or unspecified chronic kidney disease; I50.9 Heart failure, unspecified; W18.30XA Fall on same level, unspecified, initial encounter; F17.210 Nicotine dependence, cigarettes, uncomplicated; F32.9 Major depressive disorder, single episode, unspecified; F41.0 Panic disorder [episodic paroxysmal anxiety]; N18.9 Chronic kidney disease, unspecified; S05.11XA Contusion of eyeball and orbital tissues, right eye, initial encounter; Z82.3 Family history of stroke; Z85.118 Personal history of other malignant neoplasm of bronchus and lung; Z85.3 Personal history of malignant neoplasm of breast; Z90.12 Acquired absence of left breast and nipple; Z99.81 Dependence on supplemental oxygen; Z79.899 Other long term (current) drug therapy; Y92.89 Other specified places as the place of occurrence of the external cause
CPT/HCPCS: 36415; 36600; 71010; 71275; 80048; 80053; 82550; 82805; 83605; 83735; 83880; 84443; 84484; 85025; 85610; 87040; 87081; 93005; 94640; 94660; 96365; 96375; 99291; J0696; J1642

== ENCOUNTER 2017-03-03 15:08 | Inpatient (IN) | payer MEDICARE, MEDICAID ==
[~2017-03-03] VITALS: Ht 172.7 cm; Wt 66.0 kg
[~2017-03-03 15:08] MED LIST changes: -LEVO500T21 PO
[2017-03-03] MEDS ORDERED: TRAZ100T2 PO (16:06)
[2017-03-03] MEDS ORDERED: AZIT500T4 PO (16:06)
[2017-03-03] MEDS ORDERED: CIPR-173 PO (16:06)
[2017-03-03] MEDS ORDERED: GABA100C9 PO (16:06)
[2017-03-03] MEDS ORDERED: PRE1T PO (16:06)
[2017-03-03] MEDS ORDERED: SERT-274 PO (16:06)
[2017-03-03] MEDS ORDERED: APIX5TAB OR (16:06)
[2017-03-03] MEDS ORDERED: CALCIUM CHLOR(10%) 100MG/ML 10ML SYRINGE IV ONE (16:09)
[2017-03-03] MEDS ORDERED: CALCIUM GLUC 4.65meq/50ml D5AE 50 ML IV ONE (16:15)
[2017-03-03 16:39] LABS: Alanine Aminotransferase 31 U/L (13-56); Anion Gap 2 (5-15); Aspartate Aminotransferase 46 U/L (15-37); BUN/Creatinine Ratio 29.3; Blood Urea Nitrogen 22 mg/dL (7-18); Calcium 8.7 mg/dL (8.5-10.1); Chloride 96 mmol/L (98-107); GFR African American 99 mL/min; GFR Non-African American 82 mL/min; Glucose 112 mg/dL (74-106); Magnesium 2.2 mg/dL (1.6-2.6); Potassium 4.9 mmol/L (3.5-5.1); Sodium 140 mmol/L (136-145)
[2017-03-03 16:44] LABS: Alkaline Phosphatase 89 U/L (45-117); Bilirubin, Total 0.4 mg/dL (0.2-1.0); Total Protein 7.1 g/dL (6.4-8.2)
[2017-03-03 16:46] LABS: Basophils # (auto) 0 uL; Eosinophils # (auto) 0 uL; Lymphocytes # (auto) 0.5 uL; Monocytes # (auto) 0.6 uL
[2017-03-03 16:55] LABS: Basophils % (auto) 0.2 % (0.0-2.0); Eosinophils % (auto) 0.3 % (0.0-7.0); Hematocrit 38.2 % (36.0-46.0); Hemoglobin 12.2 g/dL (12.2-16.2); Lymphocytes % (auto) 9.6 % (10.0-50.0); Mean Corpuscular Hemoglobin 30.5 pg (28.0-32.0); Mean Corpuscular Hgb Conc. 31.8 g/dL (32.0-36.0); Monocytes % (auto) 12.3 % (0.0-12.0); Neutrophils # (auto) 3.7 uL; Neutrophils % (auto) 77.6 % (37.0-80.0); Nucleated Red Blood Cells % 0.7 %; Platelet Count (auto) 257 10^3/uL (140-450); Red Blood Cells 3.98 10^6/uL (4.0-5.20); Red Cell Distribution Width 14.2 % (11.8-14.3); White Blood Cell 4.8 10^3/uL (4.4-10.8)
[2017-03-03 17:01] LABS: INR 0.98 (0.9-1.15); Partial Thromboplastin Time 30.6 sec (22.64-33.71); Prothrombin Time 10.7 sec (9.37-12.3)
[2017-03-03 17:01] LABS: Carbon Dioxide 42 mmol/L (21-32)
[2017-03-03] MEDS ORDERED: PROPOFOL 100 ML IV ONE (17:03)
[2017-03-03 17:05] LABS: Urine Bacteria NONE SEEN /hpf (None Seen); Urine Blood 1+ /uL (Negative); Urine Specific Gravity 1.017 (1.001-1.035); Urine WBC <1 /hpf (0 - 5)
[2017-03-03] MEDS ORDERED: PROPOFOL 10 MG/ML 20 ML IV ONE (17:30)
[2017-03-03] MEDS ORDERED: MIDAZOLAM DRIP 50 mg/50mL 50 ML IV ONE ×2 (19:06→22:37)
[2017-03-03 19:17] VITALS: BP 151/83
[2017-03-03] MEDS ORDERED: ALBUTEROL SULF 2.5 MG/0.5ML(0.5%) NEB SOLN ONE (19:27)
[2017-03-03] MEDS ORDERED: IPRATROPIUM BROM 0.5 MG/2.5ML INH SOL ONE (19:28)
[2017-03-03] MEDS ORDERED: ALBUTEROL SULF 2.5 MG/0.5ML(0.5%) NEB SOLN NEB ONE (19:30)
[2017-03-03] MEDS ORDERED: IPRATROPIUM BROM 0.5 MG/2.5ML INH SOL NEB ONE (19:30)
[2017-03-03] MEDS ORDERED: PROMETHAZINE HCL 25 MG/ML 1ML IV PRN (19:45)
[2017-03-03] MEDS ORDERED: OSELTAMIVIR 75MG/5ML ORAL SUSP GT ONE (19:45)
[2017-03-03] MEDS ORDERED: LORazepam 2MG/ML-1ML VIAL IV PRN (19:45)
[2017-03-03] MEDS ORDERED: cefTRIAXone 1GM/10ml IVPUSH 10 ML IV ONE (19:45)
[2017-03-03] MEDS ORDERED: LACTULOSE 20Gm/30ML SOLN PO PRN (19:45)
[2017-03-03] MEDS ORDERED: ACETAMINOPHEN 650 MG RECT SUPP PR ONE (19:45)
[2017-03-03] MEDS ORDERED: ALBUTEROL SULF 2.5 MG/0.5ML(0.5%) NEB SOLN NEB PRN (19:45)
[2017-03-03] MEDS ORDERED: MORPHINE SULFATE 4 MG/ML SYR/VIAL IV PRN ×3 (19:45)
[2017-03-03] MEDS ORDERED: NITROGLYCERIN 0.4 MG SL TAB SL PRN (19:45)
[2017-03-03] MEDS ORDERED: VANCOMYCIN PER PHARMACY 0 MG IV SCH (20:15)
[2017-03-03] MEDS ORDERED: VANCOMYCIN 1GM/250ML 250 ML IV ONE (20:15)
[2017-03-03] MEDS ORDERED: PIPERACILLIN-TAZOB 3.375GM 50 ML IV ONE (20:15)
[2017-03-03 20:18] VITALS: BP 140/78
[2017-03-03 20:43] LABS: Amylase 76 U/L (25-115); Lipase 243 U/L (73-393)
[2017-03-03 21:10] LABS: Potassium 4.3 mmol/L (3.5-5.1)
[2017-03-03 22:00] VITALS: BP 142/75
[2017-03-03] MEDS: AZITHROMYCIN 500MG/ 250ML 250 ML IV SCH (22:19)
[2017-03-03] MEDS: MIDAZOLAM DRIP 50 mg/50mL 50 ML IV SCH (23:00)
[2017-03-03] MEDS: PROPOFOL 100 ML IV SCH (23:00)
[2017-03-04] VITALS (12 sets, daily range): BP systolic 132–158; BP diastolic 69–97
[2017-03-04] MEDS: methylPREDNISolone SOD SUCC 40 MG/ML VL IV SCH ×5 (00:23→22:58)
[2017-03-04] MEDS: APIXABAN 5 MG TAB NG SCH ×3 (00:30→23:04)
[2017-03-04] MEDS: PIPERACILLIN-TAZOB 3.375GM 50 ML IV SCH ×4 (01:02→18:04)
[2017-03-04] MEDS ORDERED: ACETAMINOPHEN 650 MG RECT SUPP PR ONE (01:15)
[2017-03-04] MEDS: BUDESONIDE (INHALATION) 0.5 MG/2 ML NEB NEB SCH ×3 (02:14→18:48)
[2017-03-04] MEDS: IPRATROPIUM BROM 0.5 MG/2.5ML INH SOL NEB SCH ×4 (02:14→18:48)
[2017-03-04] MEDS: ALBUTEROL SULF 2.5 MG/0.5ML(0.5%) NEB SOLN NEB SCH ×4 (02:14→18:47)
[2017-03-04 05:30] LABS: Basophils # (auto) 0 uL; Basophils % (auto) 0.1 % (0.0-2.0); Eosinophils # (auto) 0 uL; Hemoglobin 10.8 g/dL (12.2-16.2); Lymphocytes # (auto) 0.4 uL; Lymphocytes % (auto) 7.1 % (10.0-50.0); Mean Corpuscular Hemoglobin 30.5 pg (28.0-32.0); Mean Corpuscular Hgb Conc. 32.6 g/dL (32.0-36.0); Mean Corpuscular Volume 93.5 fL (80.0-100.0); Monocytes # (auto) 0.2 uL; Monocytes % (auto) 3.4 % (0.0-12.0); Neutrophils # (auto) 5.5 uL; Neutrophils % (auto) 89.4 % (37.0-80.0); Nucleated Red Blood Cells % 0.1 %; Platelet Count (auto) 242 10^3/uL (140-450); Red Blood Cells 3.53 10^6/uL (4.0-5.20); Red Cell Distribution Width 13.9 % (11.8-14.3); White Blood Cell 6.1 10^3/uL (4.4-10.8)
[2017-03-04 06:02] LABS: BUN/Creatinine Ratio 29.2; Bilirubin, Total 0.5 mg/dL (0.2-1.0); Calcium 9.6 mg/dL (8.5-10.1); Potassium 3.9 mmol/L (3.5-5.1); Total Protein 6.5 g/dL (6.4-8.2)
[2017-03-04] MEDS ORDERED: cefTRIAXone 1GM/10ml IVPUSH 10 ML IV SCH (09:00)
[2017-03-04] MEDS: OSELTAMIVIR 75MG/5ML ORAL SUSP GT SCH ×2 (09:33→22:00)
[2017-03-04] MEDS: EXEMESTANE PO SCH (09:33)
[2017-03-04] MEDS: AZITHROMYCIN 500MG/ 250ML 250 ML IV SCH (10:27)
[2017-03-04] MEDS: SERTRALINE HCL 50 MG TAB PO SCH (10:27)
[2017-03-04] MEDS: VANCOMYCIN 1GM/250ML 250 ML IV SCH ×2 (10:27→22:52)
[2017-03-04] MEDS: PROPOFOL 100 ML IV SCH (23:04)
[2017-03-04] MEDS: MIDAZOLAM DRIP 50 mg/50mL 50 ML IV SCH (23:05)
[2017-03-05] VITALS (92 sets, daily range): BP systolic 110–194; BP diastolic 57–115
[2017-03-05] MEDS: PIPERACILLIN-TAZOB 3.375GM 50 ML IV SCH ×4 (00:10→20:00)
[2017-03-05] MEDS: IPRATROPIUM BROM 0.5 MG/2.5ML INH SOL NEB SCH ×4 (00:18→19:26)
[2017-03-05] MEDS: ALBUTEROL SULF 2.5 MG/0.5ML(0.5%) NEB SOLN NEB SCH ×4 (00:18→19:26)
[2017-03-05 04:33] LABS: Basophils # (auto) 0 uL; Basophils % (auto) 0.1 % (0.0-2.0); Eosinophils # (auto) 0 uL; Hematocrit 35.6 % (36.0-46.0); Hemoglobin 11.8 g/dL (12.2-16.2); Lymphocytes # (auto) 0.5 uL; Lymphocytes % (auto) 7.4 % (10.0-50.0); Mean Corpuscular Hemoglobin 30.7 pg (28.0-32.0); Mean Corpuscular Hgb Conc. 33.1 g/dL (32.0-36.0); Mean Corpuscular Volume 92.7 fL (80.0-100.0); Monocytes # (auto) 0.3 uL; Monocytes % (auto) 4.8 % (0.0-12.0); Neutrophils % (auto) 87.7 % (37.0-80.0); Platelet Count (auto) 323 10^3/uL (140-450); Red Blood Cells 3.84 10^6/uL (4.0-5.20); Red Cell Distribution Width 14.1 % (11.8-14.3); White Blood Cell 6.8 10^3/uL (4.4-10.8)
[2017-03-05] MEDS ORDERED: hydrALAZINE HCL 20 MG/ML VL IV PRN (05:00)
[2017-03-05 05:12] LABS: BUN/Creatinine Ratio 29.7; Bilirubin, Total 0.5 mg/dL (0.2-1.0); Calcium 9.1 mg/dL (8.5-10.1); Potassium 3.9 mmol/L (3.5-5.1)
[2017-03-05] MEDS: BUDESONIDE (INHALATION) 0.5 MG/2 ML NEB NEB SCH ×2 (07:08→19:26)
[2017-03-05] MEDS: EXEMESTANE PO SCH (10:00)
[2017-03-05] MEDS: OSELTAMIVIR 75MG/5ML ORAL SUSP GT SCH (10:00)
[2017-03-05] MEDS: hydrALAZINE HCL 20 MG/ML VL IV PRN ×2 (10:12→13:28)
[2017-03-05] MEDS: APIXABAN 5 MG TAB NG SCH ×2 (10:13→22:27)
[2017-03-05] MEDS: methylPREDNISolone SOD SUCC 40 MG/ML VL IV SCH ×2 (10:14→22:27)
[2017-03-05] MEDS: SERTRALINE HCL 50 MG TAB PO SCH (10:14)
[2017-03-05] MEDS: AZITHROMYCIN 500MG/ 250ML 250 ML IV SCH (10:14)
[2017-03-05] MEDS ORDERED: ACETAMINOPHEN 650 mg PER 20 mL UD GT PRN ×2 (20:45→22:00)
[2017-03-05] MEDS ORDERED: ACETAMINOPHEN 650 mg PER 20 mL UD ONE (20:52)
[2017-03-05] MEDS: MIDAZOLAM DRIP 50 mg/50mL 50 ML IV SCH (22:31)
[2017-03-05] MEDS: PROPOFOL 100 ML IV SCH (23:00)
[2017-03-06] VITALS (72 sets, daily range): BP systolic 91–158; BP diastolic 42–99
[2017-03-06] MEDS: PIPERACILLIN-TAZOB 3.375GM 50 ML IV SCH ×5 (00:30→23:48)
[2017-03-06] MEDS: ALBUTEROL SULF 2.5 MG/0.5ML(0.5%) NEB SOLN NEB SCH ×4 (00:40→20:24)
[2017-03-06] MEDS: IPRATROPIUM BROM 0.5 MG/2.5ML INH SOL NEB SCH ×4 (00:40→20:24)
[2017-03-06 05:14] LABS: Basophils # (auto) 0 uL; Basophils % (auto) 0.3 % (0.0-2.0); Eosinophils # (auto) 0 uL; Hematocrit 36.2 % (36.0-46.0); Hemoglobin 11.8 g/dL (12.2-16.2); Lymphocytes # (auto) 0.6 uL; Lymphocytes % (auto) 7.8 % (10.0-50.0); Mean Corpuscular Hemoglobin 30.3 pg (28.0-32.0); Mean Corpuscular Hgb Conc. 32.6 g/dL (32.0-36.0); Mean Corpuscular Volume 92.9 fL (80.0-100.0); Monocytes # (auto) 0.4 uL; Monocytes % (auto) 5.3 % (0.0-12.0); Neutrophils % (auto) 86.6 % (37.0-80.0); Platelet Count (auto) 311 10^3/uL (140-450); Red Cell Distribution Width 14.5 % (11.8-14.3); White Blood Cell 8.1 10^3/uL (4.4-10.8)
[2017-03-06 05:47] LABS: Bilirubin, Total 0.5 mg/dL (0.2-1.0); Calcium 8.6 mg/dL (8.5-10.1); Potassium 3.7 mmol/L (3.5-5.1); Total Protein 6.7 g/dL (6.4-8.2)
[2017-03-06] MEDS: BUDESONIDE (INHALATION) 0.5 MG/2 ML NEB NEB SCH ×2 (06:44→20:24)
[2017-03-06] MEDS: VANCOMYCIN 1GM/250ML 250 ML IV SCH (09:19)
[2017-03-06] MEDS: EXEMESTANE PO SCH ×2 (10:00→21:18)
[2017-03-06] MEDS: methylPREDNISolone SOD SUCC 40 MG/ML VL IV SCH ×2 (10:43→22:50)
[2017-03-06] MEDS: AZITHROMYCIN 500MG/ 250ML 250 ML IV SCH (10:44)
[2017-03-06] MEDS: SERTRALINE HCL 50 MG TAB PO SCH (11:32)
[2017-03-06] MEDS: APIXABAN 5 MG TAB NG SCH ×2 (11:32→22:50)
[2017-03-06] MEDS: ACETAMINOPHEN 650 mg PER 20 mL UD PO PRN ×3 (11:33→21:18)
[2017-03-06] MEDS: hydrALAZINE HCL 20 MG/ML VL IV PRN (14:56)
[2017-03-06] MEDS: PROPOFOL 100 ML IV SCH (22:31)
[2017-03-06] MEDS: MIDAZOLAM DRIP 50 mg/50mL 50 ML IV SCH (22:31)
[2017-03-07] VITALS (7 sets, daily range): BP systolic 115–165; BP diastolic 56–84
[2017-03-07] MEDS: IPRATROPIUM BROM 0.5 MG/2.5ML INH SOL NEB SCH ×4 (01:21→20:12)
[2017-03-07] MEDS: ALBUTEROL SULF 2.5 MG/0.5ML(0.5%) NEB SOLN NEB SCH ×4 (01:21→20:12)
[2017-03-07] MEDS: VANCOMYCIN 1GM/250ML 250 ML IV SCH ×2 (03:21→21:00)
[2017-03-07] MEDS: PIPERACILLIN-TAZOB 3.375GM 50 ML IV SCH ×3 (05:43→19:05)
[2017-03-07] MEDS ORDERED: SODIUM CHLORIDE 0.9 % NEB SOLN 3ML NEB ONE (05:48)
[2017-03-07] MEDS: BUDESONIDE (INHALATION) 0.5 MG/2 ML NEB NEB SCH (06:13)
[2017-03-07 06:16] LABS: Albumin 2.6 g/dL (3.4-5.0); Bilirubin, Total 0.5 mg/dL (0.2-1.0); Calcium 8.3 mg/dL (8.5-10.1); Potassium 4.8 mmol/L (3.5-5.1)
[2017-03-07] MEDS: SERTRALINE HCL 50 MG TAB PO SCH (09:58)
[2017-03-07] MEDS: APIXABAN 5 MG TAB NG SCH ×2 (09:58→21:58)
[2017-03-07] MEDS: methylPREDNISolone SOD SUCC 40 MG/ML VL IV SCH ×2 (09:58→21:54)
[2017-03-07] MEDS: AZITHROMYCIN 500MG/ 250ML 250 ML IV SCH (10:07)
[2017-03-07] MEDS: ACETAMINOPHEN 650 mg PER 20 mL UD PO PRN ×2 (12:04→19:05)
[2017-03-08] MEDS: IPRATROPIUM BROM 0.5 MG/2.5ML INH SOL NEB SCH ×3 (00:43→12:03)
[2017-03-08] MEDS: ALBUTEROL SULF 2.5 MG/0.5ML(0.5%) NEB SOLN NEB SCH ×3 (00:44→12:03)
[2017-03-08] MEDS: BUDESONIDE (INHALATION) 0.5 MG/2 ML NEB NEB SCH ×2 (00:44→06:42)
[2017-03-08 05:00] VITALS: BP 139/62
[2017-03-08] MEDS: PIPERACILLIN-TAZOB 3.375GM 50 ML IV SCH ×2 (06:28)
[2017-03-08 06:59] LABS: Basophils # (auto) 0 uL; Eosinophils # (auto) 0 uL; Hematocrit 33.5 % (36.0-46.0); Hemoglobin 10.9 g/dL (12.2-16.2); Lymphocytes # (auto) 0.8 uL; Lymphocytes % (auto) 13.6 % (10.0-50.0); Mean Corpuscular Hemoglobin 30.8 pg (28.0-32.0); Mean Corpuscular Hgb Conc. 32.6 g/dL (32.0-36.0); Mean Corpuscular Volume 94.6 fL (80.0-100.0); Monocytes # (auto) 0.3 uL; Monocytes % (auto) 6.1 % (0.0-12.0); Neutrophils # (auto) 4.6 uL; Neutrophils % (auto) 80.3 % (37.0-80.0); Platelet Count (auto) 287 10^3/uL (140-450); Red Blood Cells 3.54 10^6/uL (4.0-5.20); Red Cell Distribution Width 14.9 % (11.8-14.3); White Blood Cell 5.7 10^3/uL (4.4-10.8)
[2017-03-08 07:40] LABS: Albumin 2.8 g/dL (3.4-5.0); BUN/Creatinine Ratio 43.1; Bilirubin, Total 0.4 mg/dL (0.2-1.0); Calcium 8.4 mg/dL (8.5-10.1); Potassium 4.2 mmol/L (3.5-5.1)
[2017-03-08 09:00] VITALS: BP 139/73
[2017-03-08] MEDS: EXEMESTANE PO SCH ×2 (10:00→14:30)
[2017-03-08] MEDS: SERTRALINE HCL 50 MG TAB PO SCH (11:34)
[2017-03-08] MEDS: methylPREDNISolone SOD SUCC 40 MG/ML VL IV SCH (11:34)
[2017-03-08] MEDS: APIXABAN 5 MG TAB NG SCH ×3 (11:35→22:00)
[2017-03-08] MEDS ORDERED: LEVOFLOXACIN 500MG 100 ML IV SCH (12:00)
[2017-03-08 13:00] VITALS: BP 141/62
[2017-03-08] MEDS: VANCOMYCIN 1GM/250ML 250 ML IV SCH (15:43)
[2017-03-08 17:00] VITALS: BP 123/83
[2017-03-08] MEDS: ACETAMINOPHEN 650 mg PER 20 mL UD PO PRN (20:54)
[2017-03-08 22:00] VITALS: BP 137/74
[2017-03-09] MEDS: IPRATROPIUM BROM 0.5 MG/2.5ML INH SOL NEB SCH ×3 (01:08→13:01)
[2017-03-09] MEDS: ALBUTEROL SULF 2.5 MG/0.5ML(0.5%) NEB SOLN NEB SCH ×3 (01:09→13:01)
[2017-03-09 05:00] VITALS: BP 106/44
[2017-03-09 08:57] VITALS: BP 144/74
[2017-03-09] MEDS: APIXABAN 5 MG TAB NG SCH (09:48)
[2017-03-09] MEDS: SERTRALINE HCL 50 MG TAB PO SCH (09:51)
[2017-03-09] MEDS ORDERED: LEVOFLOXACIN 500 MG TAB PO SCH (10:00)
[2017-03-09] MEDS ORDERED: predniSONE 20 MG TAB PO SCH (10:00)
[2017-03-09 12:59] VITALS: BP 130/73
[2017-03-09] MEDS: EXEMESTANE PO SCH (16:08)
[2017-03-09 16:28] VITALS: BP 169/84
== END 2017-03-09 17:15 | disposition home or self-care (01) | DRG 208 ==
LOC: EDBD 15:08 → ER 15:08 → TELE 15:09 → ICU WEST 03-05 03:23 → ICU CENTRL 03-06 20:18 → DOU IN ICU 03-07 00:21 → TELE-WESTW 03-07 15:38
PROVIDERS: ADMIT Internal Medicine; ATTEND Internal Medicine
PROC: 5A1945Z Respiratory Ventilation, 24-96 Consecutive Hours (ICD-10-PCS; principal; 2017-03-03)
PROC: 0BH17EZ Insertion of Endotracheal Airway into Trachea, Via Natural or Artificial Opening (ICD-10-PCS; 2017-03-03)
DX: J96.21 Acute and chronic respiratory failure with hypoxia (principal); J18.9 Pneumonia, unspecified organism; I11.0 Hypertensive heart disease with heart failure; J44.0 Chronic obstructive pulmonary disease with (acute) lower respiratory infection; I50.9 Heart failure, unspecified; J44.1 Chronic obstructive pulmonary disease with (acute) exacerbation; F17.210 Nicotine dependence, cigarettes, uncomplicated; K80.20 Calculus of gallbladder without cholecystitis without obstruction; F32.9 Major depressive disorder, single episode, unspecified; Z79.899 Other long term (current) drug therapy; Z82.3 Family history of stroke; Z85.3 Personal history of malignant neoplasm of breast; Z86.718 Personal history of other venous thrombosis and embolism; Z87.01 Personal history of pneumonia (recurrent)
CPT/HCPCS: 31500; 36415; 36600; 51702; 71010; 74176; 80053; 80061; 80202; 81001; 82150; 82805; 83605; 83690; 83735; 84132; 84484; 85025; 85610; 85730; 87040; 87070; 87081; 87205; 87400; 93005; 94002; 94003; 94640; 97163; 99291; J1956; J2250; J2543; J2704

== ENCOUNTER 2017-04-04 10:12 | Inpatient (IN) | payer MEDICARE, MEDICAID ==
[~2017-04-04] VITALS: Ht 162.6 cm; Wt 63.2 kg
[2017-04-04] VITALS (22 sets, daily range): BP systolic 84–132; BP diastolic 42–89
[~2017-04-04 10:12] MED LIST changes: +APIX5TAB OR; +AZIT500T4 PO; +CIPR-173 PO; +GABA100C9 PO; +PRE1T PO; +SERT-274 PO; +TRAZ100T2 PO
[2017-04-04 11:05] LABS: Basophils # (auto) 0 uL; Basophils % (auto) 0.5 % (0.0-2.0); Eosinophils # (auto) 0 uL; Eosinophils % (auto) 0.1 % (0.0-7.0); Hematocrit 38.7 % (36.0-46.0); Lymphocytes # (auto) 0.2 uL; Lymphocytes % (auto) 3.9 % (10.0-50.0); Mean Corpuscular Hemoglobin 30.1 pg (28.0-32.0); Mean Corpuscular Volume 97.1 fL (80.0-100.0); Monocytes # (auto) 0.5 uL; Monocytes % (auto) 8.3 % (0.0-12.0); Neutrophils # (auto) 5.6 uL; Neutrophils % (auto) 87.2 % (37.0-80.0); Nucleated Red Blood Cells % 0.2 %; Platelet Count (auto) 235 10^3/uL (140-450); Red Blood Cells 3.99 10^6/uL (4.0-5.20); Red Cell Distribution Width 15.9 % (11.8-14.3); White Blood Cell 6.4 10^3/uL (4.4-10.8)
[2017-04-04 11:08] LABS: Urine Bacteria NONE SEEN /hpf (None Seen); Urine Blood 1+ /uL (Negative); Urine Mucus FEW (None Seen); Urine Specific Gravity 1.017 (1.001-1.035); Urine WBC 2 /hpf (0 - 5)
[2017-04-04] MEDS ORDERED: SODIUM CHLORIDE 0.9% 1,000 ML IV ONE (11:09)
[2017-04-04 11:16] LABS: BUN/Creatinine Ratio 18.1; Potassium 4.6 mmol/L (3.5-5.1)
[2017-04-04 11:17] LABS: Albumin 3.1 g/dL (3.4-5.0); Bilirubin, Total 0.3 mg/dL (0.2-1.0); Calcium 8.8 mg/dL (8.5-10.1); Magnesium 2.5 mg/dL (1.6-2.6); Total Protein 7.4 g/dL (6.4-8.2)
[2017-04-04 11:19] LABS: INR 1.03 (0.9-1.15); Partial Thromboplastin Time 31.5 sec (22.64-33.71); Prothrombin Time 11.2 sec (9.37-12.3)
[2017-04-04 11:21] LABS: Alcohol, Urine < 3.0 mg/dL (0-5); Amphetamine Screen, Urine NEGATIVE (NEGATIVE); Barbiturate Scree,Urine NEGATIVE (NEGATIVE); Benzodiazephine Screen, Urine NEGATIVE (NEGATIVE); Cannabinoid Screen, Urine NEGATIVE (NEGATIVE); Cocaine Screen, Urine NEGATIVE (NEGATIVE); Opiate Scree,Urine NEGATIVE (NEGATIVE); Phencyclidine Screen, Urine NEGATIVE (NEGATIVE)
[2017-04-04] MEDS ORDERED: MIDAZOLAM DRIP 50 mg/50mL 50 ML IV ONE (11:57)
[2017-04-04] MEDS ORDERED: MIDAZOLAM HCL 5 MG/ML-1ML VIAL ONE (11:57)
[2017-04-04] MEDS: MIDAZOLAM DRIP 50 mg/50mL 50 ML IV SCH ×2 (12:05→22:15)
[2017-04-04] MEDS ORDERED: MIDAZOLAM HCL 5 MG/ML-1ML VIAL IV ONE (12:15)
[2017-04-04] MEDS ORDERED: DOPamine 1600MCG/ML D5W 250 ML IV ONE (13:00)
[2017-04-04] MEDS ORDERED: cefTRIAXone 1GM/10ml IVPUSH 10 ML IV ONE ×2 (13:45→16:41)
[2017-04-04] MEDS ORDERED: MORPHINE SULFATE 4 MG/ML SYR/VIAL IV PRN (14:00)
[2017-04-04] MEDS ORDERED: NITROGLYCERIN 0.4 MG SL TAB SL PRN (14:00)
[2017-04-04] MEDS ORDERED: MORPHINE SULFATE 10 MG/ML INJ 1ML SDV IV PRN (14:00)
[2017-04-04] MEDS ORDERED: MORPHINE SULF INJ 2 MG/ML SYRINGE 1ML IV PRN (14:00)
[2017-04-04] MEDS ORDERED: PIPERACILLIN-TAZOB 3.375GM 50 ML IV ONE (14:00)
[2017-04-04] MEDS ORDERED: VANCOMYCIN PER PHARMACY 0 MG IV SCH (14:00)
[2017-04-04] MEDS ORDERED: ALBUTEROL SULF 2.5 MG/0.5ML(0.5%) NEB SOLN NEB PRN (14:00)
[2017-04-04] MEDS ORDERED: PROMETHAZINE HCL 25 MG/ML 1ML IV PRN (14:00)
[2017-04-04] MEDS ORDERED: OSELTAMIVIR 75MG/5ML ORAL SUSP GT ONE (14:00)
[2017-04-04] MEDS: SODIUM CHLORIDE 0.9% 1,000 ML IV SCH (15:31)
[2017-04-04] MEDS: AZITHROMYCIN 500MG/ 250ML 250 ML IV SCH (15:34)
[2017-04-04] MEDS: methylPREDNISolone SOD SUCC 40 MG/ML VL IV SCH (17:38)
[2017-04-04] MEDS: ALBUTEROL SULF 2.5 MG/0.5ML(0.5%) NEB SOLN NEB SCH (19:43)
[2017-04-04] MEDS: IPRATROPIUM BROM 0.5 MG/2.5ML INH SOL NEB SCH (19:43)
[2017-04-04] MEDS: BUDESONIDE (INHALATION) 0.5 MG/2 ML NEB NEB SCH (19:43)
[2017-04-04] MEDS ORDERED: PIPERACILLIN-TAZOB 3.375GM 50 ML IV SCH (20:00)
[2017-04-04] MEDS ORDERED: OSELTAMIVIR 75MG/5ML ORAL SUSP GT SCH (22:00)
[2017-04-04] MEDS: APIXABAN 5 MG TAB NG SCH (22:00)
[2017-04-05] VITALS (99 sets, daily range): BP systolic 113–176; BP diastolic 49–117
[2017-04-05] MEDS: MIDAZOLAM DRIP 50 mg/50mL 50 ML IV SCH ×5 (03:20→21:10)
[2017-04-05 03:59] LABS: Basophils # (auto) 0 uL; Basophils % (auto) 0.2 % (0.0-2.0); Eosinophils # (auto) 0 uL; Eosinophils % (auto) 0.1 % (0.0-7.0); Hematocrit 38.3 % (36.0-46.0); Hemoglobin 12.5 g/dL (12.2-16.2); Lymphocytes # (auto) 0.3 uL; Lymphocytes % (auto) 6.7 % (10.0-50.0); Mean Corpuscular Hemoglobin 30.7 pg (28.0-32.0); Mean Corpuscular Hgb Conc. 32.6 g/dL (32.0-36.0); Monocytes # (auto) 0 uL; Monocytes % (auto) 0.6 % (0.0-12.0); Neutrophils # (auto) 4.5 uL; Neutrophils % (auto) 92.4 % (37.0-80.0); Platelet Count (auto) 216 10^3/uL (140-450); Red Blood Cells 4.07 10^6/uL (4.0-5.20); Red Cell Distribution Width 15.1 % (11.8-14.3); White Blood Cell 4.9 10^3/uL (4.4-10.8)
[2017-04-05 04:27] LABS: Albumin 2.9 g/dL (3.4-5.0); BUN/Creatinine Ratio 24.8; Bilirubin, Total 0.4 mg/dL (0.2-1.0); Potassium 4.5 mmol/L (3.5-5.1); Total Protein 7.1 g/dL (6.4-8.2)
[2017-04-05] MEDS: SODIUM CHLORIDE 0.9% 1,000 ML IV SCH (06:15)
[2017-04-05] MEDS: BUDESONIDE (INHALATION) 0.5 MG/2 ML NEB NEB SCH ×2 (06:15→18:36)
[2017-04-05] MEDS: ALBUTEROL SULF 2.5 MG/0.5ML(0.5%) NEB SOLN NEB SCH ×4 (06:15→18:36)
[2017-04-05] MEDS: IPRATROPIUM BROM 0.5 MG/2.5ML INH SOL NEB SCH ×4 (06:15→18:36)
[2017-04-05] MEDS: methylPREDNISolone SOD SUCC 40 MG/ML VL IV SCH ×5 (06:26→23:54)
[2017-04-05] MEDS: APIXABAN 5 MG TAB NG SCH ×2 (10:08→21:11)
[2017-04-05] MEDS: cefTRIAXone 1GM/10ml IVPUSH 10 ML IV SCH (10:08)
[2017-04-05] MEDS: AZITHROMYCIN 500MG/ 250ML 250 ML IV SCH (10:09)
[2017-04-05] MEDS ORDERED: POTASSIUM CHL 10% (20 MEQ/15ML) 15ml ORAL SOLN GT ONE (12:15)
[2017-04-05] MEDS ORDERED: Fibersource Hn 1 Liter GT SCH (12:15)
[2017-04-05] MEDS ORDERED: FUROSEMIDE 20 MG/2 ML VIAL IV ONE (12:15)
[2017-04-06] VITALS (107 sets, daily range): BP systolic 116–178; BP diastolic 52–115
[2017-04-06] MEDS: ALBUTEROL SULF 2.5 MG/0.5ML(0.5%) NEB SOLN NEB SCH ×4 (00:19→18:42)
[2017-04-06] MEDS: IPRATROPIUM BROM 0.5 MG/2.5ML INH SOL NEB SCH ×4 (00:19→18:43)
[2017-04-06] MEDS: MIDAZOLAM DRIP 50 mg/50mL 50 ML IV SCH ×5 (01:22→22:51)
[2017-04-06 03:51] LABS: Basophils # (auto) 0 uL; Basophils % (auto) 0.3 % (0.0-2.0); Eosinophils # (auto) 0 uL; Hematocrit 32.5 % (36.0-46.0); Hemoglobin 10.7 g/dL (12.2-16.2); Lymphocytes # (auto) 0.2 uL; Lymphocytes % (auto) 7.2 % (10.0-50.0); Mean Corpuscular Hemoglobin 30.8 pg (28.0-32.0); Mean Corpuscular Hgb Conc. 32.8 g/dL (32.0-36.0); Mean Corpuscular Volume 93.9 fL (80.0-100.0); Monocytes # (auto) 0.1 uL; Neutrophils # (auto) 2.6 uL; Neutrophils % (auto) 87.5 % (37.0-80.0); Nucleated Red Blood Cells % 0.1 %; Platelet Count (auto) 210 10^3/uL (140-450); Red Blood Cells 3.46 10^6/uL (4.0-5.20); Red Cell Distribution Width 15.1 % (11.8-14.3)
[2017-04-06 04:13] LABS: BUN/Creatinine Ratio 41.2; Calcium 8.5 mg/dL (8.5-10.1); Potassium 4.2 mmol/L (3.5-5.1)
[2017-04-06] MEDS: methylPREDNISolone SOD SUCC 40 MG/ML VL IV SCH ×4 (05:36→23:59)
[2017-04-06] MEDS: BUDESONIDE (INHALATION) 0.5 MG/2 ML NEB NEB SCH ×2 (05:58→19:05)
[2017-04-06] MEDS: AZITHROMYCIN 500MG/ 250ML 250 ML IV SCH (10:09)
[2017-04-06] MEDS: cefTRIAXone 1GM/10ml IVPUSH 10 ML IV SCH (10:09)
[2017-04-06] MEDS: APIXABAN 5 MG TAB NG SCH ×2 (10:10→22:00)
[2017-04-06] MEDS ORDERED: FUROSEMIDE 20 MG/2 ML VIAL IV ONE (12:30)
[2017-04-06] MEDS ORDERED: POTASSIUM CHL 10% (20 MEQ/15ML) 15ml ORAL SOLN GT ONE (12:30)
[2017-04-07] VITALS (74 sets, daily range): BP systolic 124–179; BP diastolic 64–101
[2017-04-07] MEDS: ALBUTEROL SULF 2.5 MG/0.5ML(0.5%) NEB SOLN NEB SCH ×4 (00:24→19:11)
[2017-04-07] MEDS: IPRATROPIUM BROM 0.5 MG/2.5ML INH SOL NEB SCH ×4 (00:25→19:11)
[2017-04-07 03:34] LABS: Basophils # (auto) 0 uL; Basophils % (auto) 0.1 % (0.0-2.0); Eosinophils # (auto) 0 uL; Hematocrit 34.8 % (36.0-46.0); Hemoglobin 11.3 g/dL (12.2-16.2); Lymphocytes # (auto) 0.2 uL; Lymphocytes % (auto) 4.9 % (10.0-50.0); Mean Corpuscular Hemoglobin 30.2 pg (28.0-32.0); Mean Corpuscular Hgb Conc. 32.6 g/dL (32.0-36.0); Mean Corpuscular Volume 92.6 fL (80.0-100.0); Monocytes # (auto) 0.2 uL; Monocytes % (auto) 3.9 % (0.0-12.0); Neutrophils # (auto) 4.3 uL; Neutrophils % (auto) 91.1 % (37.0-80.0); Platelet Count (auto) 252 10^3/uL (140-450); Red Blood Cells 3.75 10^6/uL (4.0-5.20); Red Cell Distribution Width 15.3 % (11.8-14.3); White Blood Cell 4.7 10^3/uL (4.4-10.8)
[2017-04-07 03:38] LABS: BUN/Creatinine Ratio 51.5; Calcium 8.3 mg/dL (8.5-10.1); Potassium 4.3 mmol/L (3.5-5.1)
[2017-04-07] MEDS: methylPREDNISolone SOD SUCC 40 MG/ML VL IV SCH ×3 (06:00→21:45)
[2017-04-07] MEDS: BUDESONIDE (INHALATION) 0.5 MG/2 ML NEB NEB SCH (06:32)
[2017-04-07] MEDS: cefTRIAXone 1GM/10ml IVPUSH 10 ML IV SCH (09:49)
[2017-04-07] MEDS: AZITHROMYCIN 500MG/ 250ML 250 ML IV SCH (09:49)
[2017-04-07] MEDS: APIXABAN 5 MG TAB NG SCH ×2 (09:49→21:45)
[2017-04-07] MEDS ORDERED: POTASSIUM CHL 10% (20 MEQ/15ML) 15ml ORAL SOLN GT ONE (13:15)
[2017-04-07] MEDS ORDERED: FUROSEMIDE 20 MG/2 ML VIAL IV ONE (13:15)
[2017-04-07] MEDS: ACETAMINOPHEN 650 mg PER 20 mL UD GT PRN (14:56)
[2017-04-07] MEDS: LORazepam 2MG/ML-1ML VIAL IV PRN (21:45)
[2017-04-08] VITALS (16 sets, daily range): BP systolic 101–148; BP diastolic 55–82
[2017-04-08] MEDS: ALBUTEROL SULF 2.5 MG/0.5ML(0.5%) NEB SOLN NEB SCH ×4 (00:31→18:54)
[2017-04-08] MEDS: BUDESONIDE (INHALATION) 0.5 MG/2 ML NEB NEB SCH ×3 (00:31→18:55)
[2017-04-08] MEDS: IPRATROPIUM BROM 0.5 MG/2.5ML INH SOL NEB SCH ×4 (00:31→18:55)
[2017-04-08 04:34] LABS: Basophils # (auto) 0 uL; Basophils % (auto) 0.2 % (0.0-2.0); Eosinophils # (auto) 0 uL; Hematocrit 35.9 % (36.0-46.0); Hemoglobin 11.7 g/dL (12.2-16.2); Lymphocytes # (auto) 0.2 uL; Lymphocytes % (auto) 4.4 % (10.0-50.0); Mean Corpuscular Hemoglobin 30.3 pg (28.0-32.0); Mean Corpuscular Hgb Conc. 32.5 g/dL (32.0-36.0); Mean Corpuscular Volume 93.2 fL (80.0-100.0); Monocytes # (auto) 0.3 uL; Monocytes % (auto) 4.9 % (0.0-12.0); Neutrophils # (auto) 4.7 uL; Neutrophils % (auto) 90.5 % (37.0-80.0); Nucleated Red Blood Cells % 0.1 %; Platelet Count (auto) 235 10^3/uL (140-450); Red Blood Cells 3.86 10^6/uL (4.0-5.20); Red Cell Distribution Width 15.1 % (11.8-14.3); White Blood Cell 5.1 10^3/uL (4.4-10.8)
[2017-04-08 04:44] LABS: BUN/Creatinine Ratio 57.5; Calcium 8.3 mg/dL (8.5-10.1); Potassium 4.8 mmol/L (3.5-5.1)
[2017-04-08] MEDS: methylPREDNISolone SOD SUCC 40 MG/ML VL IV SCH ×3 (06:27→21:59)
[2017-04-08] MEDS: cefTRIAXone 1GM/10ml IVPUSH 10 ML IV SCH (09:49)
[2017-04-08] MEDS: APIXABAN 5 MG TAB NG SCH ×2 (09:49→22:00)
[2017-04-08] MEDS: AZITHROMYCIN 500MG/ 250ML 250 ML IV SCH (09:49)
[2017-04-08] MEDS ORDERED: FUROSEMIDE 40 MG TAB PO ONE (13:45)
[2017-04-08] MEDS ORDERED: POTASSIUM CHL 20 Meq TABLET PO ONE (13:45)
[2017-04-08] MEDS ORDERED: SERTRALINE HCL 50 MG TAB PO ONE (14:00)
[2017-04-08] MEDS ORDERED: MORPHINE SULFATE 4 MG/ML SYR/VIAL IV PRN ×2 (14:00→20:00)
[2017-04-08] MEDS: ACETAMINOPHEN 650 mg PER 20 mL UD GT PRN (15:32)
[2017-04-08] MEDS: LORazepam 2MG/ML-1ML VIAL IV PRN (22:01)
[2017-04-09] MEDS: ALBUTEROL SULF 2.5 MG/0.5ML(0.5%) NEB SOLN NEB SCH ×4 (00:29→18:48)
[2017-04-09] MEDS: IPRATROPIUM BROM 0.5 MG/2.5ML INH SOL NEB SCH ×4 (00:29→18:47)
[2017-04-09 05:00] VITALS: BP 118/65
[2017-04-09] MEDS: methylPREDNISolone SOD SUCC 40 MG/ML VL IV SCH (06:01)
[2017-04-09] MEDS: BUDESONIDE (INHALATION) 0.5 MG/2 ML NEB NEB SCH ×2 (06:30→18:48)
[2017-04-09 07:56] LABS: BUN/Creatinine Ratio 56.8; Calcium 8.7 mg/dL (8.5-10.1); Potassium 5.4 mmol/L (3.5-5.1)
[2017-04-09 09:00] VITALS: BP 118/67
[2017-04-09] MEDS: SERTRALINE HCL 50 MG TAB PO SCH (09:49)
[2017-04-09] MEDS: APIXABAN 5 MG TAB NG SCH ×2 (09:50→21:16)
[2017-04-09] MEDS: FUROSEMIDE 40 MG TAB PO SCH (09:50)
[2017-04-09] MEDS: cefTRIAXone 1GM/10ml IVPUSH 10 ML IV SCH (09:51)
[2017-04-09] MEDS ORDERED: POTASSIUM CHL 20 Meq TABLET PO SCH (10:00)
[2017-04-09] MEDS: AZITHROMYCIN 500MG/ 250ML 250 ML IV SCH (10:08)
[2017-04-09 13:00] VITALS: BP 126/76
[2017-04-09] MEDS: ACETAMINOPHEN 650 mg PER 20 mL UD PO PRN (13:32)
[2017-04-09 17:00] VITALS: BP 115/67
[2017-04-09] MEDS: LORazepam 2MG/ML-1ML VIAL IV PRN (19:41)
[2017-04-09 22:00] VITALS: BP 102/53
[2017-04-10] MEDS: IPRATROPIUM BROM 0.5 MG/2.5ML INH SOL NEB SCH ×4 (00:18→18:30)
[2017-04-10] MEDS: ALBUTEROL SULF 2.5 MG/0.5ML(0.5%) NEB SOLN NEB SCH ×4 (00:18→18:30)
[2017-04-10 05:00] VITALS: BP 109/64
[2017-04-10] MEDS: BUDESONIDE (INHALATION) 0.5 MG/2 ML NEB NEB SCH ×2 (06:22→18:30)
[2017-04-10 08:30] LABS: BUN/Creatinine Ratio 59.7
[2017-04-10] MEDS: cefTRIAXone 1GM/10ml IVPUSH 10 ML IV SCH (08:53)
[2017-04-10] MEDS: SERTRALINE HCL 50 MG TAB PO SCH (08:53)
[2017-04-10] MEDS: AZITHROMYCIN 500MG/ 250ML 250 ML IV SCH (08:53)
[2017-04-10] MEDS: FUROSEMIDE 40 MG TAB PO SCH (08:54)
[2017-04-10] MEDS: predniSONE 20 MG TAB PO SCH (08:54)
[2017-04-10 09:45] VITALS: BP 129/79
[2017-04-10] MEDS: APIXABAN 5 MG TAB PO SCH ×2 (09:47→21:14)
[2017-04-10 13:00] VITALS: BP 136/90
[2017-04-10 17:28] VITALS: BP 114/70
[2017-04-10] MEDS: ACETAMINOPHEN 650 mg PER 20 mL UD PO PRN (19:58)
[2017-04-10] MEDS: LORazepam 2MG/ML-1ML VIAL IV PRN (21:27)
[2017-04-10 21:54] VITALS: BP 128/79
[2017-04-11] MEDS: IPRATROPIUM BROM 0.5 MG/2.5ML INH SOL NEB SCH ×4 (00:14→18:55)
[2017-04-11] MEDS: ALBUTEROL SULF 2.5 MG/0.5ML(0.5%) NEB SOLN NEB SCH ×4 (00:14→18:55)
[2017-04-11 03:48] VITALS: BP 128/79
[2017-04-11 05:29] VITALS: BP 134/63
[2017-04-11 09:00] VITALS: BP 95/56
[2017-04-11] MEDS: AZITHROMYCIN 500MG/ 250ML 250 ML IV SCH (09:03)
[2017-04-11] MEDS: SERTRALINE HCL 50 MG TAB PO SCH (09:04)
[2017-04-11] MEDS: APIXABAN 5 MG TAB PO SCH ×2 (09:04→21:49)
[2017-04-11] MEDS: cefTRIAXone 1GM/10ml IVPUSH 10 ML IV SCH (09:04)
[2017-04-11] MEDS: predniSONE 20 MG TAB PO SCH (09:04)
[2017-04-11] MEDS: FUROSEMIDE 40 MG TAB PO SCH (09:05)
[2017-04-11 12:00] VITALS: BP 108/61
[2017-04-11] MEDS: BUDESONIDE (INHALATION) 0.5 MG/2 ML NEB NEB SCH ×2 (13:40→18:55)
[2017-04-11] MEDS: LORazepam 2MG/ML-1ML VIAL IV PRN ×2 (17:02→23:37)
[2017-04-11 17:03] VITALS: BP 103/58
[2017-04-11] MEDS: ACETAMINOPHEN 650 mg PER 20 mL UD PO PRN (20:31)
[2017-04-11 21:53] VITALS: BP 104/64
[2017-04-12] MEDS: IPRATROPIUM BROM 0.5 MG/2.5ML INH SOL NEB SCH ×3 (00:31→11:23)
[2017-04-12] MEDS: ALBUTEROL SULF 2.5 MG/0.5ML(0.5%) NEB SOLN NEB SCH ×3 (00:31→11:23)
[2017-04-12 04:53] VITALS: BP 113/64
[2017-04-12] MEDS: BUDESONIDE (INHALATION) 0.5 MG/2 ML NEB NEB SCH (05:59)
[2017-04-12 08:00] VITALS: BP 106/64
[2017-04-12] MEDS: SERTRALINE HCL 50 MG TAB PO SCH (10:28)
[2017-04-12] MEDS: cefTRIAXone 1GM/10ml IVPUSH 10 ML IV SCH (10:28)
[2017-04-12] MEDS: FUROSEMIDE 40 MG TAB PO SCH (10:28)
[2017-04-12] MEDS: APIXABAN 5 MG TAB PO SCH (10:28)
[2017-04-12] MEDS: predniSONE 20 MG TAB PO SCH (10:28)
[2017-04-12] MEDS: AZITHROMYCIN 500MG/ 250ML 250 ML IV SCH (10:29)
[2017-04-12 11:40] VITALS: BP 106/64
[2017-04-12 12:00] VITALS: BP 96/47
== END 2017-04-12 14:15 | disposition hospice, home (50) | DRG 208 ==
LOC: ER 10:12 → EDBD 10:12 → TELE 10:13 → ICU WEST 22:30 → TELE-CENTR 04-08 15:07
PROVIDERS: ADMIT Internal Medicine; ATTEND Internal Medicine
PROC: 5A1945Z Respiratory Ventilation, 24-96 Consecutive Hours (ICD-10-PCS; principal; 2017-04-04)
PROC: 0BH17EZ Insertion of Endotracheal Airway into Trachea, Via Natural or Artificial Opening (ICD-10-PCS; 2017-04-04)
PROC: 5A09357 Assistance with Respiratory Ventilation, Less than 24 Consecutive Hours, Continuous Positive Airway Pressure (ICD-10-PCS; 2017-04-04)
DX: J96.20 Acute and chronic respiratory failure, unspecified whether with hypoxia or hypercapnia (principal); G93.41 Metabolic encephalopathy; I50.33 Acute on chronic diastolic (congestive) heart failure; E44.0 Moderate protein-calorie malnutrition; J18.9 Pneumonia, unspecified organism; E11.21 Type 2 diabetes mellitus with diabetic nephropathy; I11.0 Hypertensive heart disease with heart failure; J44.0 Chronic obstructive pulmonary disease with (acute) lower respiratory infection; E44.1 Mild protein-calorie malnutrition; J44.1 Chronic obstructive pulmonary disease with (acute) exacerbation; F17.210 Nicotine dependence, cigarettes, uncomplicated; F32.9 Major depressive disorder, single episode, unspecified; Z51.5 Encounter for palliative care; F41.9 Anxiety disorder, unspecified; Z68.23 Body mass index [BMI] 23.0-23.9, adult; Z82.3 Family history of stroke; Z85.3 Personal history of malignant neoplasm of breast; Z86.718 Personal history of other venous thrombosis and embolism; Z79.899 Other long term (current) drug therapy; Z90.89 Acquired absence of other organs; Z79.01 Long term (current) use of anticoagulants
CPT/HCPCS: 31500; 36415; 36600; 51702; 70450; 71045; 80048; 80053; 80307; 81001; 82805; 82962; 83605; 83735; 84443; 84484; 85025; 85610; 85730; 87040; 87070; 87081; 87205; 87400; 93005; 94002; 94003; 94640; 94660; 96361; 96365; 96375; 97163; 99291; J2250; J2543

== ENCOUNTER 2017-05-19 11:29 | Emergency (ER) | payer MEDICARE, MEDICAID ==
[~2017-05-19] VITALS: Ht 165.1 cm; Wt 54.4 kg
[2017-05-19] MEDS ORDERED: DEXTROSE (50%) 50ML SYRG IV ONE (11:30)
[2017-05-19] MEDS ORDERED: EPINEPHrine HCL 1 MG/10 ML SYRG IV ONE (11:30)
[2017-05-19] MEDS ORDERED: SODIUM BICARBONATE 8.4% INJ 50ML SYRINGE IV ONE (11:30)
[2017-05-19 11:36] VITALS: BP 0/0
== END 2017-05-19 14:32 | disposition expired ==
LOC: ER 11:29 → EDBD 11:29 → ER 14:32
DX: I46.9 Cardiac arrest, cause unspecified (principal); I50.9 Heart failure, unspecified; I11.0 Hypertensive heart disease with heart failure; F17.210 Nicotine dependence, cigarettes, uncomplicated; J44.9 Chronic obstructive pulmonary disease, unspecified; Z79.899 Other long term (current) drug therapy; Z90.49 Acquired absence of other specified parts of digestive tract
CPT/HCPCS: 31500; 92950; 99285; J0171; J7042